=== PATIENT | female | born 1985 | race Caucasian/White ===

== ENCOUNTER 2019-06-19 01:48 | Inpatient (IN) ==
[2019-06-19] MEDS ORDERED: CEFAZOLIN 2000MG 2,000 MG/15 ML SYR IV ONE (02:45)
[2019-06-19 02:58] LABS: Hematocrit (blood only) 34.7 % (37-47); Hemoglobin 11.8 g/dL (12.0-16.0); Mean Corpuscular Hemoglobin 29.6 pg (25-34); Mean Corpuscular Volume 87.2 fL (80-100); Mean Platelet Volume 11.2 fL (7.4-10.4); Platelet Count 189 K/uL (130-400); RDW Coefficient of Variation 13.2 % (11.5-14.5); RDW Standard Deviation 42.5 fL (36.4-46.3); Red Blood Count 3.98 M/uL (4.2-5.4); White Blood Count 8.04 K/uL (4.8-10.8)
--- NOTE | 2019-06-19 04:33 | History & Physical Report ---
Date of Service June 19, 2019 Assessment & Plan (1) Carrier of group B Streptococcus: start ancef as allergy to amoxicillin. (2) Spontaneous rupture of membranes: Is starting to contract. Will allow expectant management for now. fetus category. pitocin augmentation as needed. History of Present Illness Chief Complaint: rom Primary Care Provider: NO PCP Patient is a 33yowf with iup at 40 6/7 weeks who presents with c/o lof at 12:30am, clear. Notes some mild cramping. +fm. Scheduled for induction today. complicated by GBS from urine and need for treating in labor. labs--B+/ab-/pa pnl/ri//rprnr/hebp-/hiv-/gc/ct-/declined cf, sma/declines genetics Allergies Allergy/AdvReac Type Severity Reaction Status Date / Time Iodine SOLN Allergy Severe Redness of Uncoded 06/19/19 02:06 Skin Amoxicillin TABS Allergy Unknown Rash Uncoded 06/19/19 02:04 Home Medications Home Medications Medication Instructions Recorded Confirmed Type prenat.vits,clarence,biu-moiq-jakmb 1 tab PO DAILY 03/14/19 06/19/19 History Patient History Family History (Updated 03/14/19 @ 07:42 by Martha Lucero) Grandfather (Paternal) Diabetes Hypertension Social History (Updated 03/14/19 @ 07:42 by Martha Lucero) Preferred Language: Tajik Communication Ability: Effective Beliefs That Will Affect Care: None marital status: Current Living Situation: Spouse Other Information That Helps Us Care for You: No Feels Safe at Home: Yes Safety Concerns: Feels Safe At This Time Smoking Status: Never smoker Hx Alcohol Use: No Hx Substance Use: No OB History g1--07/22, sab [employer] History no stds, no abnl paps Review of Systems All systems reviewed & are unremarkable except as noted in HPI & below Physical Exam Constitutional: WD/WN, vitals as above Gastrointestinal (Abdomen): soft, gravid, nt Psychiatric: A+Ox3, euthymic affect Genitourinary: cx--2/80/-1 toco--q 3-8 min efm--140s with mod variability, accels present, no decels Results & Data Vital Signs (Past 12 Hours) Vital Signs Temp Pulse Resp BP 06/19/19 04:15 36.7 C 18 06/19/19 03:00 36.6 C 18 06/19/19 02:01 36.7 C 18 06/19/19 01:56 98 H 120/76 Code Status & VTE Plan VTE Prophylaxis Plan VTE Prophylaxis will be ordered: No
[2019-06-19] MEDS ORDERED: INFLUENZA ADMINISTRATION CHARGE ONE (06:00)
[2019-06-19] MEDS ORDERED: INFLUENZA VIRUS QUAD VACCINE 0.5 ML SYR IM ONE (06:00)
--- NOTE | 2019-06-19 06:35 | Obstetrical Progress Note ---
Date of Service June 19, 2019 Assessment & Plan (1) Spontaneous rupture of membranes: Continue expectant management at this time, since making some changed. fetus category one. Pitocin if indicated. (2) Carrier of group B Streptococcus: continue ancef Subjective notes contractions are getting more uncomfortable. Physical Exam Constitutional: WD/WN, vitals as above Psychiatric: A+Ox3, euthymic affect Genitourinary: cx--3+/100/-1 toco--q3-5min efm--130s with mod variability, accels to 160s, no decels Results & Data Vital Signs (Past 12 Hours) Vital Signs Temp Pulse Resp BP 06/19/19 06:21 73 106/61 06/19/19 04:15 36.7 C 18 06/19/19 03:00 36.6 C 18 06/19/19 02:01 36.7 C 18 06/19/19 01:56 98 H 120/76 PG Care Time/CCT Total # of Minutes Spent Total Time Spent with Patient: Total time spent is greater than 50% in coordination of care (as documented) at patient's floor/unit and/or counseling patient:
[2019-06-19] MEDS ORDERED: OXYTOCIN 30 UNITS/500 ML BAG IV PRN (10:20)
[2019-06-19] MEDS: LACTATED RINGER'S 1,000 ML IV PRN ×4 (10:31→18:44)
[2019-06-19] MEDS: CEFAZOLIN 1000MG 1,000 MG/7.5 ML SYR IV PRN ×2 (10:46→18:44)
[2019-06-19] MEDS ORDERED: BUPIVACAINE 0.25% 30 ML VIAL ONE (11:37)
[2019-06-19] MEDS ORDERED: fentaNYL citrate 100 MCG/2 ML VIAL ONE (11:37)
[2019-06-19] MEDS ORDERED: ePHEDrine sulfate 50 MG/ML AMP ONE (11:37)
[2019-06-19] MEDS ORDERED: fentaNYL 2MCG/ML ROPIV 1.25MG/ML 100 ML BAG EPI ONE (11:38)
[2019-06-19] MEDS ORDERED: ePHEDrine sulfate 50 MG/ML AMP IV PRN (12:25)
[2019-06-19] MEDS ORDERED: fentaNYL 2MCG/ML ROPIV 1.25MG/ML 100 ML BAG EPI PRN (12:25)
[2019-06-19] MEDS ORDERED: NALOXONE HCL 1 MG in SODIUM CHLORIDE 0.9% 1000ML 1,000 ML IV PRN (12:25)
[2019-06-19] MEDS ORDERED: NALBUPHINE HCL INJ 10 MG/ML AMP IV PRN (12:25)
[2019-06-19] MEDS ORDERED: DiphenhydrAMINE HCL 50 MG/ML VIAL IV PRN (12:25)
[2019-06-19] MEDS ORDERED: NALOXONE HCL 0.4 MG/1 ML VIAL/CARP IV PRN (12:25)
--- NOTE | 2019-06-19 13:08 | Anesthesiology Consultation ---
Date of Service June 19, 2019 Assessment & Plan Chart Review Chart Review: Acceptable Risk for Labor Epidural Consults Requested none History Height/Weight Height: 5 ft 6 in Weight: 90.718 kg Allergies Allergy/AdvReac Type Severity Reaction Status Date / Time Iodine SOLN Allergy Severe Redness of Uncoded 06/19/19 02:06 Skin Amoxicillin TABS Allergy Unknown Rash Uncoded 06/19/19 02:04 Medications Home Medications Medication Instructions Recorded Confirmed Last Taken prenat.vits,clarence,ihr-nubg-rhpxi 1 tab PO DAILY 03/14/19 06/19/19 06/18/19 19:30 Active Medications Generic Name Dose Route Start Last Admin Trade Name Freq PRN Reason Stop Dose Admin Lactated Ringer's 1,000 mls @ 125 mls/hr 06/19/19 02:45 06/19/19 12:20 Lr IV 06/21/19 02:44 125 mls/hr .Q8H PRN Administration L&D Protocol Protocol Cefazolin Sodium 1,000 mg in 7.5 mls @ 2.5 mls/min 06/19/19 10:50 06/19/19 10:46 Ancef 1000mg IV 07/03/19 10:49 2.5 mls/min Q8H PRN Administration until delivery Oxytocin 30 units in 500 mls @ 3 mls/hr 06/19/19 10:20 06/19/19 11:28 Pitocin IV 06/21/19 10:19 0.18 units/hr .Q24H PRN 3 mls/hr Labor Induction/Augmentation Titration Protocol 0.18 UNITS/HR Past Medical History Medical History History of irregular menstrual cycles History of varicella Past Family History Family History Grandfather (Paternal) Diabetes Hypertension Past Surgical History Surgical History History of ankle surgery History of wisdom tooth extraction Social History Smoking Status: Never smoker Hx Alcohol Use: No Hx Substance Use: No Physical Exam Vital Signs Last Vital Signs Temp 36.9 C 06/19/19 11:30 Pulse 101 H 06/19/19 13:06 Resp 20 06/19/19 11:30 BP 111/58 L 06/19/19 13:06 Pulse Ox 100 06/19/19 13:05 Testing Laboratory Results 06/19/19 02:47
--- NOTE | 2019-06-19 16:45 | Labor Progress Brief Note ---
Date of Service June 19, 2019 Subjective Reason For Note: Routine Evaluation Assessment & Plan (1) Carrier of group B Streptococcus: 33yo G1 at 40.6 weeks GA. PROM. 1. tachy noted for ~30 minute - Bolus performed with FHR improvement and Cat 1 at present 2. Labor: Progressing. Continue Pitocin 3. Vitals: Stable 4. GBS positive: continue ancef (2) Spontaneous rupture of membranes: (3) Supervision of normal first : Physical Exam Genitourinary: OB Exam Abdomen: + vertex Manual OB Exam: + cervical dilation 6 cm, + cervical effacement 90%, + station 0 and + amniotic fluid clear OB Exam Monitor Tracing: + external FHT monitor used, + external uterine monitor used, + category I and + normal FHT variability Results & Data Vital Signs (Past 12 Hours) Vital Signs Temp Pulse Resp BP Pulse Ox 06/19/19 16:41 82 98 06/19/19 16:36 86 98 06/19/19 16:31 87 97 06/19/19 16:29 74 111/63 06/19/19 16:26 85 98 06/19/19 16:21 88 99 06/19/19 16:15 89 99 06/19/19 16:13 82 88/54 L 06/19/19 16:10 82 97 06/19/19 16:05 81 98 06/19/19 16:03 36.9 C 18 06/19/19 16:00 83 91/51 L 98 06/19/19 15:58 76 88/54 L 06/19/19 15:55 101 H 98 06/19/19 15:50 82 98 06/19/19 15:45 78 97 06/19/19 15:43 81 90/52 L 06/19/19 15:40 92 H 98 06/19/19 15:35 88 98 06/19/19 15:30 98 H 98 06/19/19 15:29 101 H 99/55 L 06/19/19 15:28 96 H 99/54 L 06/19/19 15:25 97 H 99 06/19/19 15:20 95 H 98 06/19/19 15:15 92 H 98 06/19/19 15:13 36.8 C 95 H 18 103/56 L 06/19/19 15:10 90 98 06/19/19 15:05 103 H 98 06/19/19 15:00 96 H 98 06/19/19 14:59 95 H 97/52 L 06/19/19 14:55 118 H 98 06/19/19 14:50 119 H 99 06/19/19 14:45 114 H 98 06/19/19 14:44 81 111/55 L 06/19/19 14:40 95 H 98 06/19/19 14:35 103 H 98 06/19/19 14:30 118 H 99 06/19/19 14:29 90 111/61 06/19/19 14:25 85 98 06/19/19 14:20 109 H 99 06/19/19 14:15 106 H 99 06/19/19 14:13 117 H 108/65 06/19/19 14:10 90 100 06/19/19 14:05 95 H 99 06/19/19 14:00 94 H 100 06/19/19 13:58 105 H 114/69 06/19/19 13:55 81 100 06/19/19 13:50 107 H 100 06/19/19 13:45 126 H 100 06/19/19 13:44 80 115/62 06/19/19 13:40 105 H 100 06/19/19 13:35 113 H 100 06/19/19 13:30 116 H 100 06/19/19 13:26 114 H 106/63 06/19/19 13:25 113 H 99 06/19/19 13:24 76 108/62 06/19/19 13:22 120 H 108/59 L 06/19/19 13:20 88 109/56 L 100 06/19/19 13:18 94 H 114/59 L 06/19/19 13:16 117 H 103/58 L 06/19/19 13:15 106 H 99 06/19/19 13:14 84 107/66 06/19/19 13:12 107 H 101/66 06/19/19 13:10 118 H 100/63 99 06/19/19 13:08 125 H 92/55 L 06/19/19 13:06 101 H 111/58 L 06/19/19 13:05 140 H 100 06/19/19 13:04 109 H 93/50 L 06/19/19 13:02 88 98/54 L 06/19/19 13:00 120 H 94/53 L 100 06/19/19 12:58 120 H 101/57 L 06/19/19 12:56 110 H 86/51 L 06/19/19 12:55 97 H 100 06/19/19 12:54 106 H 87/51 L 06/19/19 12:52 106 H 95/50 L 06/19/19 12:50 108 H 103/56 L 100 06/19/19 12:48 100 H 103/59 L 06/19/19 12:46 77 102/57 L 06/19/19 12:45 78 100 06/19/19 12:40 85 100 06/19/19 12:37 36.9 C 18 06/19/19 12:36 83 113/67 06/19/19 12:35 89 100 06/19/19 11:30 36.9 C 81 20 119/78 06/19/19 10:52 83 114/65 06/19/19 10:03 81 114/60 06/19/19 09:25 36.8 C 18 06/19/19 07:27 36.9 C 20 06/19/19 07:26 75 98/57 L 06/19/19 06:21 73 106/61 06/19/19 06:15 36.7 C 18
[2019-06-20] MEDS ORDERED: AZITHROMYCIN 500 MG in DEXTROSE 5% 250 ML IV ONE (02:20)
[2019-06-20] MEDS ORDERED: CEFAZOLIN 2000MG 2,000 MG/15 ML SYR IV ONE (02:20)
[2019-06-20] MEDS ORDERED: CITRIC ACID/SODIUM CITRATE 15 ML UDC ONE (02:37)
[2019-06-20] MEDS: LACTATED RINGER'S 1,000 ML IV PRN (02:45)
[2019-06-20] MEDS ORDERED: LIDOCAINE/EPINEPHRINE 2% 1:200,000 20 ML SDV ONE ×2 (04:06)
[2019-06-20] MEDS ORDERED: OXYTOCIN 10 UNITS/ML VIAL ONE (04:06)
[2019-06-20] MEDS ORDERED: PHENYLEPHRINE 100MCG/ML 5ML SYR ONE (04:06)
[2019-06-20] MEDS ORDERED: MoRPHine SULFATE PF 1 MG/ML 10 ML AMP/VIAL ONE (04:08)
[2019-06-20] MEDS ORDERED: ONDANSETRON INJ 2 MG/ML 2 ML VIAL ONE (04:22)
[2019-06-20] MEDS ORDERED: fentaNYL citrate 100 MCG/2 ML VIAL ONE (04:23)
[2019-06-20] MEDS ORDERED: SENNA 8.6 MG TAB PO PRN (04:38)
[2019-06-20] MEDS ORDERED: BENZOCAINE 20% AER SPR 82.5 GM CAN EXT PRN (04:38)
[2019-06-20] MEDS ORDERED: DIPHTHERIA/TETANUS/PERTUSSIS 0.5 ML SYR/VIAL IM ONE (04:38)
[2019-06-20] MEDS ORDERED: HYDROCORTISONE ACETATE 25 MG SUPP PR PRN (04:38)
[2019-06-20] MEDS ORDERED: SUPERCREAM 0.870% 15 GM JAR EXT PRN (04:38)
[2019-06-20] MEDS ORDERED: KETOROLAC 30 MG/ML VIAL IV PRN ×2 (04:38→05:04)
[2019-06-20] MEDS ORDERED: MAGNESIUM HYDROXIDE SUSP 30 ML UDC PO PRN (04:38)
[2019-06-20] MEDS ORDERED: LACTATED RINGER'S 1,000 ML IV SCH (04:45)
--- NOTE | 2019-06-20 04:55 | Anesthesia Procedure Note ---
Date of Service June 20, 2019 Anesthesia Post Epidural Note Vital Signs Vital Signs: Temp Pulse Resp BP Pulse Ox 36.7 C 115 H 18 112/72 98 06/20/19 03:00 06/20/19 04:52 06/20/19 03:00 06/20/19 04:47 06/20/19 04:52 Pain Intensity Sacrum: Pain Intensity: 0 Notes Mental Status: alert / awake / arousable Nausea / Vomiting: adequately controlled Pain: adequately controlled Airway Patency, RR, SpO2: stable & adequate BP & HR: stable & adequate Hydration State: stable & adequate Neuraxial Anesthesia: was administered and sensory block is resolving Anesthetic Complications: no major complications apparent and Pt Satisfied with anesthetic care Epidural: Removed without complications and With tip intact
[2019-06-20] MEDS ORDERED: ePHEDrine sulfate 50 MG/ML AMP IV PRN (05:04)
[2019-06-20] MEDS ORDERED: NALOXONE HCL 0.08 MG in SYRINGE 1.8 ML IV PRN (05:04)
[2019-06-20] MEDS ORDERED: HYDROmorphone INJ 0.5 MG/0.5 ML SYR IV PRN (05:04)
[2019-06-20] MEDS ORDERED: DiphenhydrAMINE HCL 50 MG/ML VIAL IV PRN ×2 (05:04→23:04)
[2019-06-20] MEDS ORDERED: METOCLOPRAMIDE HCL 20 MG in SODIUM CHLORIDE 0.9% 50 ML IV PRN (05:04)
[2019-06-20] MEDS ORDERED: LACTATED RINGER'S 500 ML IV PRN (05:04)
[2019-06-20] MEDS ORDERED: NALOXONE HCL 1 MG in SODIUM CHLORIDE 0.9% 1000ML 1,000 ML IV PRN (05:04)
[2019-06-20] MEDS ORDERED: MEPERIDINE HCL 25 MG/ML CARP IV PRN (05:04)
[2019-06-20] MEDS ORDERED: MoRPHine SULFATE PF 1 MG/ML 10 ML AMP/VIAL INT SPINAL ONE (05:04)
[2019-06-20] MEDS ORDERED: NALBUPHINE HCL INJ 10 MG/ML AMP IV PRN (05:04)
[2019-06-20] MEDS ORDERED: NALOXONE HCL 0.4 MG/1 ML VIAL/CARP IV PRN (05:04)
[2019-06-20] MEDS ORDERED: MoRPHine SULFATE 2 MG/ML CARP IV PRN (05:04)
[2019-06-20] MEDS ORDERED: PROMETHAZINE HCL 25 MG in SODIUM CHLORIDE 0.9% 50 ML IV PRN ×2 (05:04→23:04)
[2019-06-20] MEDS ORDERED: ONDANSETRON INJ 2 MG/ML 2 ML VIAL IV PRN ×2 (05:04→23:04)
[2019-06-20] MEDS ORDERED: NO NARCOTICS OR SEDATIVES SCH (05:15)
[2019-06-20] MEDS ORDERED: DC INTRASPINAL MORPHINE SCH (05:15)
[2019-06-20] MEDS ORDERED: SODIUM CHLORIDE 0.9% 1000ML 1,000 ML IV SCH (05:15)
--- NOTE | 2019-06-20 05:17 | Operative Report ---
DATE OF OPERATION: 06/20/2019 PROCEDURE: Primary low transverse section. SURGEON: Amauri Martinez MD PREOPERATIVE DIAGNOSES: 1. Single intrauterine at 41 weeks 0 days gestational age. 2. Premature rupture of membranes. 3. Arrest of descent. 4. Prolonged rupture of membranes. 5. GBS positive. POSTOPERATIVE DIAGNOSES: 1. Single intrauterine at 41 weeks 0 days gestational age. 2. Premature rupture of membranes. 3. Arrest of descent. 4. Prolonged rupture of membranes. 5. GBS positive. 6. Status post delivery. ESTIMATED BLOOD LOSS: 700 mL. DRAINS: Breen. FLUIDS: Continuous lactated ringer. URINE OUTPUT: Via Breen, see EMR. COMPLICATIONS: None. FINDINGS: Viable female with weight pending with Apgars of 8 and 9 and weight of 4220 grams. INDICATIONS: Ms. Dudley is a 33-year-old G1, P0, admitted at 40 weeks 6 days gestational age for premature rupture of membranes. The patient was started on oxytocin. She received an epidural for anesthesia. She became complete-complete, 0 to +1 station, at which time she felt a strong urge to push. The patient pushed for approximately 2 hours and 45 minutes with no descent of station. We discussed management options at that time including continued pushing versus a section. The patient opted to proceed with the section. Consents were reviewed and signed prior to proceeding to the OR. The patient received 500 mg of azithromycin and 2 grams of Ancef. DESCRIPTION OF PROCEDURE: The patient was taken to the operating room after consents were ensured. Upon presentation, she was properly identified. The patient's epidural anesthesia was bolused to achieve adequate surgical levels. The patient was then prepped and draped in the normal sterile fashion. A preprocedural timeout was performed. A Pfannenstiel incision was then made with a knife. This was carried down to underlying fascia with the Bovie. The fascia was then nicked at the midline with a knife. The fascia was then extended in each direction with pickedgar and Kessler scissors. The superior aspect of the fascia was then grasped with Kochers x2, elevated off the underlying rectus muscles using blunt dissection. The inferior aspect of the fascia was then grasped with Kochers x2, elevated off the underlying rectus muscles using blunt dissection. The midline was then entered bluntly and placed on stretch to provide adequate room for delivery. The bladder blade was inserted and bladder flap was created. A low transverse uterine incision was then made with a knife. The head of the was then delivered through the hysterotomy and body and shoulders quickly followed. was noted to be showed some signs of response upon delivery when the cord was double clamped and cut, and the was taken to the awaiting nursery staff. Cord blood was obtained. Attention was then turned to deliver the placenta, which was delivered with fundal massage and gentle cord traction and was noted to be intact with 3-vessel cord. The uterus was then exteriorized. Several passes were made to remove any remaining membranes with a wet lap. The uterus was then closed with 3-0 Vicryl in continuous running locked suture, second imbricating layer of 3-0 Vicryl was performed. The posterior cul-de-sac was then cleaned of clots and debris. The uterus was returned to maternal abdomen. Right and left pericolic gutters were inspected and noted to be hemostatic. The space of Retzius was hemostatic. The subcutaneous fascial and muscle layers were then inspected and noted to be hemostatic. Fascia was then closed with 0 Vicryl continuous running stitch. The subcutaneous layers were reapproximated with 2-0 plain in a continuous running stitch. The skin was reapproximated with 3-0 Vicryl on a Boy needle. Needle, sponge and instrument counts were correct at the completion of the case with mother and stable in the immediate post-delivery. I attest to the content of the Intraoperative Record and any orders documented therein. Any exceptions are noted below. CASSY
[2019-06-20] MEDS: OXYTOCIN 20 UNITS in LACTATED RINGER'S 1,000 ML IV SCH ×2 (06:04→14:25)
--- NOTE | 2019-06-20 06:21 | Anesthesiology Progress Note ---
Date of Service June 20, 2019 Anesthesia Post Procedure Vital Signs Vital Signs: Temp Pulse Resp BP Pulse Ox 06/20/19 06:17 83 94 06/20/19 06:16 82 94 06/20/19 06:12 82 94 06/20/19 06:07 90 95 06/20/19 06:06 85 94 06/20/19 06:02 84 112/57 L 95 06/20/19 06:00 37.4 C 18 06/20/19 05:57 95 H 96 06/20/19 05:56 104 H 110/60 06/20/19 05:54 108 H 94 06/20/19 05:52 105 H 96 06/20/19 05:47 37.4 C 108 H 20 112/58 L 94 06/20/19 05:42 105 H 95 06/20/19 05:37 106 H 16 120/65 96 06/20/19 05:32 103 H 95 06/20/19 05:27 104 H 18 114/61 95 06/20/19 05:22 107 H 96 06/20/19 05:17 107 H 16 117/72 96 06/20/19 05:12 100 H 96 06/20/19 05:07 104 H 18 119/80 96 06/20/19 05:02 93 H 97 06/20/19 04:57 100 H 97 06/20/19 04:56 98 H 114/75 06/20/19 04:52 115 H 98 06/20/19 04:47 36.7 C 105 H 16 112/72 96 06/20/19 04:06 20 06/20/19 03:25 103 H 98 06/20/19 03:20 114 H 97 06/20/19 03:15 118 H 97 06/20/19 03:13 105 H 119/77 06/20/19 03:10 110 H 98 06/20/19 03:05 93 H 97 06/20/19 03:00 36.7 C 94 H 18 97 06/20/19 02:58 98 H 112/70 06/20/19 02:55 91 H 98 06/20/19 02:51 107 H 82 L 06/20/19 02:50 94 H 97 06/20/19 02:45 97 H 97 06/20/19 02:43 86 109/64 06/20/19 02:40 96 H 114/69 97 06/20/19 02:36 77 128/70 06/20/19 02:35 91 H 98 06/20/19 02:30 74 18 96 06/20/19 02:26 85 94 06/20/19 02:25 73 98 06/20/19 02:20 74 99 06/20/19 02:15 96 H 95 06/20/19 02:10 70 97 06/20/19 02:05 75 98 06/20/19 02:00 90 18 98 06/20/19 01:56 60 116/67 06/20/19 01:55 85 98 06/20/19 01:50 135 H 97 06/20/19 01:45 93 H 97 06/20/19 01:40 67 96 06/20/19 01:35 76 95 06/20/19 01:34 124 H 94 06/20/19 01:30 82 18 96 06/20/19 01:29 75 80 L 06/20/19 01:25 73 97 06/20/19 01:19 79 98 06/20/19 01:14 70 96 06/20/19 01:11 81 92 06/20/19 01:08 77 100 06/20/19 01:05 86 92 06/20/19 01:03 81 98 06/20/19 01:00 36.7 C 81 18 93 06/20/19 00:59 74 123/67 06/20/19 00:58 70 97 06/20/19 00:53 75 98 06/20/19 00:48 69 97 06/20/19 00:47 80 94 06/20/19 00:43 71 97 06/20/19 00:42 116 H 92 06/20/19 00:38 69 97 06/20/19 00:33 76 98 06/20/19 00:28 92 H 97 06/20/19 00:06 77 132/76 98 06/20/19 00:01 76 98 06/20/19 00:00 18 06/19/19 23:56 95 H 97 06/19/19 23:51 78 97 06/19/19 23:47 86 124/71 06/19/19 23:46 94 H 97 06/19/19 23:45 111 H 196/103 H 06/19/19 23:44 109 H 89 L 06/19/19 23:41 100 H 97 06/19/19 23:36 77 97 06/19/19 23:31 86 96 06/19/19 23:30 18 06/19/19 23:26 114 H 97 06/19/19 23:22 92 H 94 06/19/19 23:21 92 H 94 06/19/19 23:16 98 H 97 06/19/19 23:15 88 123/76 06/19/19 23:11 92 H 96 06/19/19 23:06 91 H 97 06/19/19 23:03 92 H 94 06/19/19 23:01 87 96 06/19/19 23:00 36.7 C 18 06/19/19 22:58 85 134/77 06/19/19 22:56 85 97 06/19/19 22:54 81 93 06/19/19 22:51 86 95 06/19/19 22:46 77 94 06/19/19 22:44 86 123/77 06/19/19 22:41 79 98 06/19/19 22:40 76 94 06/19/19 22:36 79 96 06/19/19 22:31 89 92 06/19/19 22:28 88 136/83 06/19/19 22:26 87 97 06/19/19 22:21 99 H 98 06/19/19 22:16 90 99 06/19/19 22:13 93 H 125/78 06/19/19 22:11 97 H 99 06/19/19 22:06 82 98 06/19/19 22:01 82 98 06/19/19 21:59 77 125/70 06/19/19 21:58 18 06/19/19 21:56 87 99 06/19/19 21:51 83 98 06/19/19 21:46 82 99 06/19/19 21:43 93 H 117/68 06/19/19 21:41 89 98 06/19/19 21:36 87 98 06/19/19 21:31 91 H 99 06/19/19 21:30 18 06/19/19 21:29 78 127/75 06/19/19 21:26 87 99 06/19/19 21:21 80 99 06/19/19 21:16 79 99 06/19/19 21:13 86 117/70 06/19/19 21:11 82 98 06/19/19 21:06 91 H 98 06/19/19 21:01 95 H 98 06/19/19 21:00 36.9 C 18 06/19/19 20:58 83 116/69 06/19/19 20:56 88 98 06/19/19 20:51 92 H 100 06/19/19 20:46 99 H 99 06/19/19 20:43 78 112/65 06/19/19 20:41 88 99 06/19/19 20:36 81 100 06/19/19 20:31 83 99 06/19/19 20:28 88 113/68 06/19/19 20:26 85 99 06/19/19 20:21 89 98 06/19/19 20:16 84 98 06/19/19 20:13 86 107/63 06/19/19 20:11 83 98 06/19/19 20:06 97 H 99 06/19/19 20:01 90 99 06/19/19 20:00 82 114/67 06/19/19 19:56 89 99 06/19/19 19:54 18 06/19/19 19:51 91 H 99 06/19/19 19:46 98 H 99 06/19/19 19:44 74 93/50 L 06/19/19 19:41 94 H 98 06/19/19 19:36 104 H 99 06/19/19 19:31 80 98 06/19/19 19:28 83 95/52 L 06/19/19 19:26 85 99 06/19/19 19:21 100 H 99 06/19/19 19:16 83 96 06/19/19 19:15 36.7 C 18 06/19/19 19:13 87 101/58 L 06/19/19 19:11 98 H 98 06/19/19 19:06 97 H 97 06/19/19 19:01 87 99 06/19/19 18:58 107 H 93/50 L 06/19/19 18:56 93 H 98 06/19/19 18:51 83 98 06/19/19 18:46 101 H 99 06/19/19 18:43 81 95/53 L 06/19/19 18:41 90 100 06/19/19 18:36 90 99 06/19/19 18:31 98 H 98 06/19/19 18:28 90 103/57 L 06/19/19 18:26 99 H 99 06/19/19 18:21 97 H 99 06/19/19 18:16 86 98 06/19/19 18:13 82 118/67 06/19/19 18:11 90 100 06/19/19 18:06 96 H 100 06/19/19 18:01 92 H 99 06/19/19 18:00 36.9 C 18 06/19/19 17:58 84 126/77 06/19/19 17:56 99 H 98 06/19/19 17:51 97 H 99 06/19/19 17:46 87 98 06/19/19 17:43 85 119/69 06/19/19 17:41 93 H 98 06/19/19 17:36 93 H 100 06/19/19 17:31 84 98 06/19/19 17:28 86 118/70 06/19/19 17:26 89 97 06/19/19 17:21 107 H 98 06/19/19 17:16 112 H 97 06/19/19 17:14 83 118/70 06/19/19 17:11 82 97 06/19/19 17:08 36.8 C 16 06/19/19 17:06 96 H 98 06/19/19 17:01 99 H 97 06/19/19 16:58 100 H 103/65 06/19/19 16:56 84 98 06/19/19 16:51 82 97 06/19/19 16:46 118 H 99 06/19/19 16:45 88 115/66 06/19/19 16:41 82 98 06/19/19 16:36 86 98 06/19/19 16:31 87 97 06/19/19 16:29 74 111/63 06/19/19 16:26 85 98 06/19/19 16:21 88 99 06/19/19 16:15 89 99 06/19/19 16:13 82 88/54 L 06/19/19 16:10 82 97 06/19/19 16:05 81 98 06/19/19 16:03 36.9 C 18 06/19/19 16:00 83 91/51 L 98 06/19/19 15:58 76 88/54 L 06/19/19 15:55 101 H 98 06/19/19 15:50 82 98 06/19/19 15:45 78 97 06/19/19 15:43 81 90/52 L 06/19/19 15:40 92 H 98 06/19/19 15:35 88 98 06/19/19 15:30 98 H 98 06/19/19 15:29 101 H 99/55 L 06/19/19 15:28 96 H 99/54 L 06/19/19 15:25 97 H 99 06/19/19 15:20 95 H 98 06/19/19 15:15 92 H 98 06/19/19 15:13 36.8 C 95 H 18 103/56 L 06/19/19 15:10 90 98 06/19/19 15:05 103 H 98 06/19/19 15:00 96 H 98 06/19/19 14:59 95 H 97/52 L 06/19/19 14:55 118 H 98 06/19/19 14:50 119 H 99 06/19/19 14:45 114 H 98 06/19/19 14:44 81 111/55 L 06/19/19 14:40 95 H 98 06/19/19 14:35 103 H 98 06/19/19 14:30 118 H 99 06/19/19 14:29 90 111/61 06/19/19 14:25 85 98 06/19/19 14:20 109 H 99 06/19/19 14:15 106 H 99 06/19/19 14:13 117 H 108/65 06/19/19 14:10 90 100 06/19/19 14:05 95 H 99 06/19/19 14:00 94 H 100 06/19/19 13:58 105 H 114/69 06/19/19 13:55 81 100 06/19/19 13:50 107 H 100 06/19/19 13:45 126 H 100 06/19/19 13:44 80 115/62 06/19/19 13:40 105 H 100 06/19/19 13:35 113 H 100 06/19/19 13:30 116 H 100 14 13:26 114 H 106/63 06/19/19 13:25 113 H 99 06/19/19 13:24 76 108/62 06/19/19 13:22 120 H 108/59 L 06/19/19 13:20 88 109/56 L 100 06/19/19 13:18 94 H 114/59 L 06/19/19 13:16 117 H 103/58 L 06/19/19 13:15 106 H 99 06/19/19 13:14 84 107/66 06/19/19 13:12 107 H 101/66 06/19/19 13:10 118 H 100/63 99 06/19/19 13:08 125 H 92/55 L 06/19/19 13:06 101 H 111/58 L 06/19/19 13:05 140 H 100 06/19/19 13:04 109 H 93/50 L 06/19/19 13:02 88 98/54 L 06/19/19 13:00 120 H 94/53 L 100 06/19/19 12:58 120 H 101/57 L 06/19/19 12:56 110 H 86/51 L 06/19/19 12:55 97 H 100 06/19/19 12:54 106 H 87/51 L 06/19/19 12:52 106 H 95/50 L 06/19/19 12:50 108 H 103/56 L 100 06/19/19 12:48 100 H 103/59 L 06/19/19 12:46 77 102/57 L 06/19/19 12:45 78 100 06/19/19 12:40 85 100 06/19/19 12:37 36.9 C 18 06/19/19 12:36 83 113/67 06/19/19 12:35 89 100 06/19/19 11:30 36.9 C 81 20 119/78 06/19/19 10:52 83 114/65 06/19/19 10:03 81 114/60 06/19/19 09:25 36.8 C 18 06/19/19 07:27 36.9 C 20 06/19/19 07:26 75 98/57 L 06/19/19 06:21 73 106/61 Pain Intensity Sacrum: Pain Intensity: 0 Bilateral Lower Abdomen: Pain Intensity: 1 Transfer of Care Handoff Completed per policy Notes Mental Status: alert / awake / arousable and participated in evaluation Patient Amnestic to Procedure: Yes Nausea / Vomiting: adequately controlled Pain: adequately controlled Airway Patency, RR, SpO2: stable & adequate BP & HR: stable & adequate Hydration State: stable & adequate Anesthetic Complications: no major complications apparent
[2019-06-20] MEDS: DOCUSATE SODIUM 100 MG CAP PO SCH ×2 (09:55→21:02)
[2019-06-20] MEDS: FERROUS SULFATE 325 MG TAB PO SCH (09:56)
[2019-06-20] MEDS: SIMETHICONE 80 MG CHEW PO SCH ×4 (09:56→21:02)
[2019-06-20] MEDS: PRENATAL VITAMIN 1 TAB PO SCH (09:56)
[2019-06-20] MEDS ORDERED: ZOLPIDEM TARTRATE 5 MG TAB PO PRN (23:04)
[2019-06-20] MEDS ORDERED: OXYCODONE/ACETAMINOPHEN 5mg/325mg TAB PO PRN (23:04)
[2019-06-21 06:42] LABS: Basophils # (auto) 0.01 K/uL (0-0.2); Basophils % (auto) 0.1 %; Eosinophils # (auto) 0.11 K/uL (0-0.5); Eosinophils % (auto) 1.4 %; Hematocrit (blood only) 30.5 % (37-47); Hemoglobin 10.2 g/dL (12.0-16.0); Immature Granulocytes # (auto) 0.04 K/uL (0.00-0.02); Immature Granulocytes % (auto) 0.5 %; Lymphocytes # (auto) 1.08 K/uL (1.2-3.4); Lymphocytes % (auto) 13.8 %; Mean Corpuscular Hemoglobin 29.7 pg (25-34); Mean Corpuscular Hgb Conc 33.4 g/dL (32-36); Mean Corpuscular Volume 88.9 fL (80-100); Mean Platelet Volume 11.2 fL (7.4-10.4); Monocytes # (auto) 1.02 K/uL (0.11-0.59); Neutrophils # (auto) 5.57 K/uL (1.4-6.5); Neutrophils % (auto) 71.2 %; Platelet Count 141 K/uL (130-400); RDW Coefficient of Variation 13.6 % (11.5-14.5); RDW Standard Deviation 44.2 fL (36.4-46.3); Red Blood Count 3.43 M/uL (4.2-5.4); White Blood Count 7.83 K/uL (4.8-10.8)
--- NOTE | 2019-06-21 07:31 | Obstetrical Progress Note ---
Date of Service <Wesly Ibarrapiyush - Last Filed: 06/21/19 07:31> June 21, 2019 Assessment & Plan <Wesly Hidalgo DO - Last Filed: 06/21/19 07:31> (1) : -POD#1 -Vitals reviewed, WNL (Tmax 36.9) - GBS +, Blood Type B+ - PCN prepartum - Clinically stable. - Feels well today. Ambulating well. Plan for regular diet later today. - Requires straight cath PRN, will continue to monitor. - Pain well controlled. - Routine post care - After discharge will have [address] Martinez. Day #:: 1 Subjective <Wesly IbarraDO piyush - Last Filed: 06/21/19 07:31> Ambulation: ambulating normally Voiding: requires PRN straight cath (able to minimally void with effort) Passing Gas:: Yes Diet Tolerance:: clear liquids Lochia:: Moderate Feeding Type:: breast feeding Current Pain Level(1-10): 2 (improved with analgesics) Patient is a 33 POD#1. Patient states that she is doing well this morning and that her pain is well controlled. She has no complaints at this point in time. Constitutional: no fever and no chills Respiratory: no cough, no dyspnea and no wheezing Cardiovascular: no chest pain, no dyspnea, no dyspnea on exertion, no edema and no calf pain Breast: no breast pain Gastrointestinal: no abdominal pain, no nausea and no vomiting Genitourinary (female): + difficulty urinating (slow to urinate, requires straight cath PRN); no dysuria Neurologic: no headache(s) Physical Exam <Wesly Ibarrapiyush - Last Filed: 06/21/19 07:31> Constitutional WD/WN, vitals as above Respiratory normal respiratory effort, lungs clear to auscultation Cardiovascular Rate/Rhythm: regular rate and regular rhythm Heart Sounds: normal S1 and normal S2; no click, no gallop, no murmur and no cardiac rub Extremities: + edema (+1); no calf tenderness Gastrointestinal (Abdomen) Inspection/Auscultation: abdomen normal to inspection, normal bowel sounds and + abdominal surgical incision (Dressing clean and dry) Percussion/Palpation: abdomen soft; abdomen nontender Genitourinary OB Exam Abdomen: + fundal height Fundus: + firm and + relation to umbilicus (1cm below); not tender and not boggy Results & Data <Wesly Hidalgo DO - Last Filed: 06/21/19 07:31> Vital Signs (Past 12 Hours) Vital Signs Temp Pulse Resp BP Pulse Ox 06/21/19 04:10 36.5 C 59 L 18 103/67 95 06/20/19 23:05 36.6 C 60 20 100/62 97 06/20/19 22:19 18 95 06/20/19 21:02 20 97 06/20/19 20:10 36.6 C 64 18 101/63 95 <Ange Galindo MD, FACOG - Last Filed: 06/21/19 07:46> Co-Signing Physician Notes Resident Physician Supervision Note: I was present with Dr. Hidalgo during the history and exam. I discussed the case with the resident and agree with the findings and plan as documented in the note. Any exceptions or clarifications are listed here: [None] Documented By: Ange Galindo MD, FACOG Resident Activity Tracking <Wesly Hidalgo DO - Last Filed: 06/21/19 07:31> Resident Involvement: Resident Care Provided Care Provided: OB Delivery
[2019-06-21] MEDS: FERROUS SULFATE 325 MG TAB PO SCH (09:02)
[2019-06-21] MEDS: DOCUSATE SODIUM 100 MG CAP PO SCH ×2 (09:02→21:25)
[2019-06-21] MEDS: SIMETHICONE 80 MG CHEW PO SCH ×4 (09:03→21:25)
[2019-06-21] MEDS: IBUPROFEN 600 MG TAB PO PRN ×2 (09:03→21:26)
[2019-06-21] MEDS: PRENATAL VITAMIN 1 TAB PO SCH (09:03)
[2019-06-21] MEDS ORDERED: HYDROCORTISONE 1% CRM 30 GM TUBE EXT PRN (11:38)
[2019-06-21] MEDS: DiphenhydrAMINE 2%/ZINC 0.1% CREAM 28GM TUBE EXT PRN ×2 (15:43→21:29)
[2019-06-21] MEDS ORDERED: BISACODYL 5 MG TABEC PO SCH (20:00)
[2019-06-22] MEDS ORDERED: BISACODYL 10 MG SUPP PR PRN (04:38)
[2019-06-22 06:25] LABS: Hematocrit (blood only) 29.5 % (37-47); Hemoglobin 9.8 g/dL (12.0-16.0)
[2019-06-22] MEDS: PRENATAL VITAMIN 1 TAB PO SCH (08:12)
[2019-06-22] MEDS: FERROUS SULFATE 325 MG TAB PO SCH (08:12)
[2019-06-22] MEDS: IBUPROFEN 600 MG TAB PO PRN ×3 (08:12→20:28)
[2019-06-22] MEDS: SIMETHICONE 80 MG CHEW PO SCH ×2 (08:12→20:28)
[2019-06-22] MEDS: DOCUSATE SODIUM 100 MG CAP PO SCH ×2 (08:12→20:28)
--- NOTE | 2019-06-22 08:14 | Obstetrical Progress Note ---
Date of Service June 22, 2019 Assessment & Plan (1) Encounter for care and examination after delivery: continue current care plan Subjective Ambulation: ambulating normally Voiding: no voiding problems Passing Gas:: Yes Diet Tolerance:: regular diet Lochia:: Small Feeding Type:: breast feeding has pruritic rash where contraction belt was - tried the Benadryl cream & hydrocortisone cream which didn't help very much. incision pain is minimal- taking only ibuprofen for pain. Review of Systems All systems reviewed & are unremarkable except as noted in HPI & below Constitutional: + as per Subjective / HPI Physical Exam Constitutional WD/WN, vitals as above Gastrointestinal (Abdomen) Inspection/Auscultation: + abdominal surgical incision (dry & intact, no cellulitis) Percussion/Palpation: + abdomen tender (appropriate for post-op) and abdomen soft Psychiatric A+Ox3, euthymic affect Genitourinary OB Exam Abdomen: + fundal height Fundus: + firm and + relation to umbilicus (2 below); not tender Results & Data Vital Signs (Past 12 Hours) Vital Signs Temp Pulse Resp BP Pulse Ox 06/22/19 07:15 97.7 F 59 L 14 109/63 98 06/21/19 23:30 97.7 F 65 14 106/62 96 06/21/19 20:15 97.3 F L 75 14 115/73 98
--- NOTE | 2019-06-23 05:51 | Obstetrical Progress Note ---
Date of Service June 23, 2019 Assessment & Plan (1) Encounter for care and examination after delivery: Brent is a 33 yo on POD 3 after at 41 weeks for arrest of descent. - GBS + (s/p ancef in pre- period), Blood Type B+, Rubella immune -Vitals reviewed and WNL -Hemoglobin reviewed: 11.8 on arrival, down to 9.8 on 06/22. Patient is asymptomatic. Advised to supplement with oral iron following d/c -patient is doing clinically well Discharge instruction reviewed - After discharge will have [address] Martinez. Supervising Physician Co-Signing Physician Notes Resident Physician Supervision Note: I interviewed and examined the patient. Discussed with Dr. Barrientos and agree with findings and plan as documented in the note. Any exceptions or clarifications are listed here: [None] Documented By: Fabiana Loaiza MD, FACOG Subjective Pain at 2/10 in severity; well controlled with Ibuprofen. Rash on abdomen is still present and bothersome. She plans to continue to use OTC creams on it. Ambulation: ambulating normally Voiding: no voiding problems Passing Gas:: Yes Diet Tolerance:: regular diet Lochia:: Small Feeding Type:: breast feeding Review of Systems Constitutional: no fever, no chills and no sweats Respiratory: no cough and no dyspnea Cardiovascular: no chest pain and no palpitations Gastrointestinal: no nausea and no vomiting Genitourinary: no dysuria and no urinary frequency Neurologic: no headache(s) Physical Exam Constitutional: WD/WN, vitals as above no acute distress Respiratory: normal respiratory effort, lungs clear to auscultation does not use accessory muscles Auscultation: no crackles, no rhonchi, no wheezes and no pleural rub Cardiovascular: Rate/Rhythm: regular rate and regular rhythm Heart Sounds: normal S1 and normal S2; no gallop, no murmur and no cardiac rub Extremities: no calf tenderness and no pedal edema Gastrointestinal (Abdomen): Inspection/Auscultation: normal bowel sounds; abdomen not distended Percussion/Palpation: abdomen soft surgical incision: steri strips in place; minimal dried blood visible; no warmth; appropriate post-op tenderness Skin: Rash on abdomen in distribution of contraction belt. mildly erythematous Genitourinary: Uterus: fundus firm, palpable 1 cm below the umbilicus Results & Data Vital Signs (Past 12 Hours) Vital Signs Temp Pulse Resp BP Pulse Ox 06/22/19 23:55 36.5 C 65 16 124/77 98 06/22/19 19:20 36.6 C 61 16 130/81 99 Laboratory Results 06/22/19 Range/Units 06:00 Hgb 9.8 L (12.0-16.0) g/dL Hct 29.5 L (37-47) %
[2019-06-23] MEDS: FERROUS SULFATE 325 MG TAB PO SCH (08:12)
[2019-06-23] MEDS: PRENATAL VITAMIN 1 TAB PO SCH (08:12)
[2019-06-23] MEDS: IBUPROFEN 600 MG TAB PO PRN ×2 (08:12→14:06)
[2019-06-23] MEDS: SIMETHICONE 80 MG CHEW PO SCH ×2 (08:12→14:07)
[2019-06-23] MEDS: DOCUSATE SODIUM 100 MG CAP PO SCH (08:12)
--- NOTE | 2019-06-26 17:46 | Discharge Summary ---
PROCEDURES WHILE ADMITTED: Low transverse section for failure of descent. HOSPITAL COURSE: The patient was admitted on 06/19/2019 at 41 weeks 0 days gestational age for induction of labor. The patient progressed slowly in labor, but did achieve complete dilation. She pushed for approximately 2 hours and 45 minutes with no descent with the baby remaining at 0 to +1 station throughout the entire time. At that point, the patient was counseled about options including continued pushing versus vacuum assisted delivery versus a section. The patient opted to proceed with a section. The procedure was performed without difficulty and was able to be achieved via a low transverse uterine incision. The patient remained in the hospital for approximately 4 days and did well without any significant issues. The patient was discharged home in stable condition with planned followup at 6 weeks . The patient was provided with both written and verbal discharge instructions and all questions answered prior to discharge.
== END 2019-06-23 15:20 | disposition home or self-care (01) | DRG 788 ==
LOC: EDSTATUS 01:48 → OPB 01:48 → 4S1 01:49 → 4N 06-20 08:30 → 4S2 06-22 11:17

== ENCOUNTER 2021-06-17 05:34 | Inpatient (IN) ==
--- NOTE | 2021-06-08 13:51 | Anesthesiology Consultation ---
Date of Service June 08, 2021 Assessment & Plan (1) Encounter for pre-operative examination: Chart Review Chart Review: parking ramp attendant initiated Per nursing assessment 06/08/2021, patient denies any recent travel. No known Covid infection in the past 90 days. Vaccinated for Covid. No known Covid positive contacts or Covid related symptoms. Preop Covid testing scheduled 06/15/21= will await results 06/20/2019 = patient had epidural cath in placedosed with 2% lidocaine 20 cc. History Surgery Operation Date: 06/17/21 07:30 Proposed Procedures p Section ( Delivery of Baby through Abdominal Incision) - Ange Galindo MD, FACOG Height/Weight Height: 5 ft 6 in Weight: 88.451 kg Allergies Allergy/AdvReac Type Severity Reaction Status Date / Time Iodine SOLN Allergy Severe Redness of Uncoded 06/08/21 13:21 Skin, rash, itching Amoxicillin TABS Allergy Unknown Rash Uncoded 06/08/21 13:21 Medications Home Medications Medication Instructions Recorded Confirmed Last Taken prenat.vits,clarence,[id number] 1 tab PO HS 03/14/19 06/08/21 06/18/19 19:30 breast pump #1 ea 06/08/21 06/08/21 Unknown Past Medical History Medical History History of varicella Hypotension normal BP 90s/60s Past Family History Family History Grandfather (Paternal) Diabetes Hypertension Father Diabetes Progressive supranuclear palsy Denies family history of Ovarian cancer Breast cancer Colorectal cancer Past Surgical History Surgical History History of ankle surgery History of History of wisdom tooth extraction Social History Smoking Status: Never smoker Do You Dip or Chew Tobacco: No Hx Alcohol Use: No Hx Substance Use: No substance use type: does not use
--- NOTE | 2021-06-16 16:37 | History & Physical Report ---
Date of Service June 16, 2021 Assessment & Plan (1) Previous section complicating : Plan: Repeat section. The patient was counseled to the nature of the procedure including alternatives such as labor. Risks were discussed including bleeding infection injury to bowel bladder ureter vessels and even baby. The risks of internal organ injury were discussed as being higher with prior sections. Deep Vein Thrombosis, pulmonary em bolus and breakdown of the incision discussed. Deep vein thrombosis pulmonary embolus hernia and failure of the incision to heal were discussed Patient verbalized understanding of this and was given ample time to ask questions History of Present Illness Primary Care Provider: Jimmie Menchaca DO repeat C/S at 39+ weeks Allergies Allergy/AdvReac Type Severity Reaction Status Date / Time Iodine SOLN Allergy Severe Redness of Uncoded 06/08/21 13:21 Skin, rash, itching Amoxicillin TABS Allergy Unknown Rash Uncoded 06/08/21 13:21 Home Medications Medication Instructions Recorded Confirmed Type prenat.vits,clarence,[id number] 1 tab PO HS 03/14/19 06/16/21 History breast pump #1 ea 06/08/21 06/16/21 Rx Patient History Medical History History of varicella Hypotension normal BP 90s/60s Surgical History History of ankle surgery History of History of wisdom tooth extraction Family History Grandfather (Paternal) Diabetes Hypertension Father Diabetes Progressive supranuclear palsy Denies family history of Ovarian cancer Breast cancer Colorectal cancer Social History Smoking Status: Never smoker Second Hand Exposure: No; Hx Alcohol Use: No Hx Substance Use: No Preferred Language: Icelandic Communication Ability: Effective Contract Officer Required: No Beliefs That Will Affect Care: None marital status: marital status details: Nickolas Dudley (34) [phone] Current Living Situation: Spouse Current Living Situation Comment: lives with spouse, child, no pets current occupational status: employed 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
[2021-06-17] MEDS ORDERED: GENTAMICIN CONSULT ACTIVE PRN (05:37)
[2021-06-17] MEDS ORDERED: LACTATED RINGER'S 1,000 ML IV SCH ×2 (05:45→09:00)
[2021-06-17] MEDS ORDERED: CITRIC ACID/SODIUM CITRATE 15 ML UDC PO SCH (06:00)
[2021-06-17] MEDS ORDERED: CLINDAMYCIN 900 MG in DEXTROSE 5% 50 ML IV SCH (06:00)
[2021-06-17] MEDS ORDERED: GENTAMICIN SULFATE 360 MG in DEXTROSE 5% 100 ML IV SCH (06:00)
--- NOTE | 2021-06-17 06:14 | History & Physical Bridge Note ---
Date of Service June 17, 2021 History & Physical Bridge Note I have examined the patient, reviewed the History & Physical and in the interval since the performance of the History & Physical I have noted the following changes of clinical significance: no changes noted
[2021-06-17 06:31] LABS: Basophils # (auto) 0.03 K/uL (0-0.2); Basophils % (auto) 0.3 %; Eosinophils # (auto) 0.18 K/uL (0-0.5); Hematocrit (blood only) 35.3 % (37-47); Hemoglobin 11.9 g/dL (12.0-16.0); Immature Granulocytes # (auto) 0.08 K/uL (0.00-0.02); Immature Granulocytes % (auto) 0.9 %; Lymphocytes # (auto) 1.83 K/uL (1.2-3.4); Lymphocytes % (auto) 20.4 %; Mean Corpuscular Hemoglobin 30.6 pg (25-34); Mean Corpuscular Volume 90.7 fL (80-100); Mean Platelet Volume 9.9 fL (7.4-10.4); Monocytes # (auto) 1.09 K/uL (0.11-0.59); Monocytes % (auto) 12.2 %; Neutrophils # (auto) 5.74 K/uL (1.4-6.5); Neutrophils % (auto) 64.2 %; Platelet Count 202 K/uL (130-400); RDW Coefficient of Variation 13.9 % (11.5-14.5); RDW Standard Deviation 45.8 fL (36.4-46.3); Red Blood Count 3.89 M/uL (4.2-5.4); White Blood Count 8.95 K/uL (4.8-10.8)
[2021-06-17 06:37] LABS: Mean Corpuscular Hgb Conc 33.7 g/dL (32-36)
[2021-06-17] MEDS ORDERED: MoRPHine SULFATE PF 1 MG/ML 10 ML AMP/VIAL ONE (07:21)
[2021-06-17] MEDS ORDERED: LACTATED RINGER'S 500 ML IV PRN (08:23)
[2021-06-17] MEDS ORDERED: diphenhydrAMINE 50 MG/ML VIAL IV PRN (08:23)
[2021-06-17] MEDS ORDERED: MoRPHine SULFATE PF 1 MG/ML 10 ML AMP/VIAL INT SPINAL ONE (08:23)
[2021-06-17] MEDS ORDERED: HYDROmorphone INJ 0.5 MG/0.5 ML SYR IV PRN (08:23)
[2021-06-17] MEDS ORDERED: ePHEDrine sulfate 50 MG/ML AMP IV PRN (08:23)
[2021-06-17] MEDS ORDERED: PROMETHAZINE HCL 12.5 MG in SODIUM CHLORIDE 0.9% 50 ML IV PRN (08:23)
[2021-06-17] MEDS ORDERED: NALBUPHINE HCL INJ 10 MG/ML AMP IV PRN (08:23)
[2021-06-17] MEDS ORDERED: MEPERIDINE HCL 25 MG/ML CARP/VIAL IV PRN (08:23)
[2021-06-17] MEDS ORDERED: MoRPHine SULFATE 2 MG/ML CARP IV PRN (08:23)
[2021-06-17] MEDS ORDERED: NALOXONE HCL 1 MG in SODIUM CHLORIDE 0.9% 1000ML 1,000 ML IV PRN (08:23)
[2021-06-17] MEDS ORDERED: METOCLOPRAMIDE HCL 10 MG in SODIUM CHLORIDE 0.9% 50 ML IV PRN (08:23)
[2021-06-17] MEDS ORDERED: NALOXONE HCL 0.4 MG/1 ML VIAL/CARP IV PRN (08:23)
[2021-06-17] MEDS ORDERED: NALOXONE HCL 0.08 MG in SYRINGE 1.8 ML IV PRN (08:23)
[2021-06-17] MEDS ORDERED: ONDANSETRON INJ 2 MG/ML 2 ML VIAL IV PRN (08:23)
[2021-06-17] MEDS ORDERED: OXYTOCIN 10 UNITS/ML VIAL ONE (08:27)
[2021-06-17] MEDS ORDERED: ePHEDrine sulfate 50 MG/ML AMP ONE (08:27)
[2021-06-17] MEDS ORDERED: PHENYLEPHRINE 100MCG/ML 5ML SYR ONE (08:27)
[2021-06-17] MEDS ORDERED: NO NARCOTICS OR SEDATIVES SCH (08:30)
[2021-06-17] MEDS ORDERED: SODIUM CHLORIDE 0.9% 1000ML 1,000 ML IV SCH (08:30)
[2021-06-17] MEDS ORDERED: DC INTRASPINAL MORPHINE SCH (08:30)
[2021-06-17] MEDS ORDERED: SENNA 8.6 MG TAB PO PRN (08:49)
[2021-06-17] MEDS ORDERED: SUPERCREAM 0.870% 15 GM JAR EXT PRN (08:49)
[2021-06-17] MEDS ORDERED: MAGNESIUM HYDROXIDE SUSP 30 ML UDC PO PRN (08:49)
[2021-06-17] MEDS ORDERED: HYDROCORTISONE ACETATE 25 MG SUPP PR PRN (08:49)
[2021-06-17] MEDS ORDERED: DIPHTHERIA/TETANUS/PERTUSSIS 0.5 ML SYR/VIAL IM ONE (08:49)
[2021-06-17] MEDS ORDERED: BENZOCAINE 20% AER SPR 82.5 GM CAN EXT PRN (08:49)
[2021-06-17 09:02] LABS: Base Excess Cord Arterial Bld -1.7 mEq/L (-9-1.8); CO2 Cord Arterial Blood 73 mmHg (39.1-73.5); HCO3 Cord Arterial Blood 29 mmol/L (19.7-28.5); PO2 Cord Arterial Blood 12 mmHg (4.1-31.7); pH Cord Arterial Blood 7.21 (7.1-7.38)
[2021-06-17 09:09] LABS: Base Excess Cord Venous Blood 0.3 mEq/L (-7.7-1.9); Cord Venous Blood HCO3 26 mmol/L (18.4-26.8); Cord Venous Blood PCO2 48 mmHg (30.4-57.2); Cord Venous Blood PO2 29 mmHg (14.1-43.3); Cord Venous Blood pH 7.36 (7.20-7.44)
--- NOTE | 2021-06-17 09:33 | Anesthesiology Progress Note ---
Date of Service June 17, 2021 Anesthesia Post Procedure Vital Signs Vital Signs: Temp Pulse Resp BP Pulse Ox 06/17/21 09:29 99 H 100 06/17/21 09:26 84 102/61 06/17/21 09:24 94 H 100 06/17/21 09:19 77 100 06/17/21 09:15 87 20 117/63 06/17/21 09:14 87 100 06/17/21 09:09 83 100 06/17/21 09:06 73 116/63 06/17/21 09:05 20 06/17/21 09:04 83 100 06/17/21 08:59 92 H 100 06/17/21 08:55 36.5 C 82 20 112/61 06/17/21 08:54 94 H 100 06/17/21 07:03 36.5 C 79 20 100/56 L 06/17/21 05:47 86 111/68 06/17/21 05:45 36.9 C 18 Transfer of Care Handoff Completed per policy Notes Mental Status: alert / awake / arousable and participated in evaluation Patient Amnestic to Procedure: Yes Nausea / Vomiting: adequately controlled Pain: adequately controlled Airway Patency, RR, SpO2: stable & adequate BP & HR: stable & adequate Hydration State: stable & adequate Neuraxial Anesthesia: was administered and sensory block is resolving Anesthetic Complications: no major complications apparent
--- NOTE | 2021-06-17 10:07 | Operative Report ---
PG Post Operative Report Pre & Post Diagnosis Operation Date: 06/17/21 07:30 Pre-Op Diagnosis: 1. Term at 39 weeks. 2. Previous c/section desires repeat c/section. Post-Op Diagnosis: Same I identified the patient and participated in the time-out.: Yes Procedure Operation Date: 06/17/21 07:30 Actual Procedures p Section (Delivery of Baby through Abdominal Incision) with the of a live male child at 0813 in Main OR 3. (Bilateral) - Ange Galindo MD, FACOG Surgeon Ange Galindo MD, FACOG Splitter Operator Resident Estimated Blood Loss 600 Findings Consistent with Post-Op Diagnosis normal anatomy Specimens cord gases cord blood Description of Procedure Regional anesthetic was given by anesthesia patient had a Breen catheter inserted by nursing patient was prepped and draped in supine position with a leftward tilt preoperative antibiotics were given timeout performed Pickups with teeth were used to test the skin site and it was found adequate for incision scalpel used to make a Pfannenstiel incision cutting down through subcutaneous fat through the fascia fascia was then dissected laterally with the curved Kessler's fascia was released superiorly and inferiorly from the rectus muscles with the curved Kessler scissors, rectus muscle split peritoneal cavity entered in a superior location. Opening enlarged to allow exposure bladder retractor placed Metzenbaums used to dissect away the bladder flap low segment transverse incision made on the uterus with scalpel entry was done bluntly with the lithographic camera operator's finger hysterotomy incision extended with the lithographic camera operator's finger in the usual fashion baby was delivered then by flexion of the head and pressure from the assistant football coach on the abdomen, however it would not come easily, so a vacuum was applied. several pop offs, but eventually able to get the baby's head out. mouth and then nares were suctioned baby was then delivered fully without difficulty without excessive force live vigorous infant cord clamped and cut cord gases obtained cord blood obtained placenta removed manually within ensured all placenta removed with a moist lap sponge uterus exteriorized IV Pitocin had been started by anesthesia and uterine tone improved. The uterus was closed in 2 layers first layer and 0 Monocryl running locked second layer 0 Monocryl nonlocked after generous irrigation and suction of the cul-de-sac and bladder flap regions hemostasis was excellent uterus was placed back in the peritoneal cavity and hemostasis was excellent rectus muscles were inspected and found to be dry fascia closed with 0 Vicryl subcutaneous fat closed with 3-0 Vicryl prior to this subcutaneous fat was irrigated skin closed with 4-0 subcuticular Monocryl incision Steri-Stripped urine was clear at the end of the procedure The ovaries both appeared normal with no obvious abnormalities I attest to the content of the Intraoperative Record and any orders documented therein. Any exceptions are noted below. OB Procedure Charges 00248
[2021-06-17 10:11] LABS: Oxygen Sat Cord Arterial Blood < 60.0 % (<60)
[2021-06-17] MEDS: SIMETHICONE 80 MG CHEW PO SCH ×3 (15:03→20:30)
[2021-06-17] MEDS ORDERED: LACTATED RINGER S IV SCH (15:15)
[2021-06-17] MEDS ORDERED: OXYTOCIN IV SCH (15:15)
[2021-06-17] MEDS: OXYTOCIN 20 UNITS in LACTATED RINGER'S 1,000 ML IV SCH ×2 (15:45→23:24)
[2021-06-17] MEDS ORDERED: KETOROLAC 30 MG/ML VIAL IV STA (20:18)
[2021-06-17] MEDS ORDERED: KETOROLAC 30 MG/ML VIAL IV PRN (20:22)
[2021-06-17] MEDS: DOCUSATE SODIUM 100 MG CAP PO SCH (20:30)
[2021-06-17] MEDS ORDERED: LACTATED RINGER'S 500 ML IV ONE (23:40)
[2021-06-18] MEDS ORDERED: MEPERIDINE HCL 50 MG/ML CARP IV PRN (02:24)
[2021-06-18] MEDS ORDERED: PROMETHAZINE HCL 25 MG in SODIUM CHLORIDE 0.9% 50 ML IV PRN (02:24)
[2021-06-18] MEDS ORDERED: KETOROLAC 30 MG/ML VIAL IV PRN (02:24)
[2021-06-18] MEDS ORDERED: diphenhydrAMINE 50 MG/ML VIAL IV PRN (02:24)
[2021-06-18] MEDS ORDERED: ONDANSETRON INJ 2 MG/ML 2 ML VIAL IV PRN (02:24)
[2021-06-18] MEDS ORDERED: oxyCODONE/ACETAMINOPHEN 5mg/325mg TAB PO PRN (02:24)
[2021-06-18] MEDS ORDERED: diphenhydrAMINE Capsule 25 MG CAP PO PRN (02:24)
--- NOTE | 2021-06-18 06:25 | Obstetrical Progress Note ---
Date of Service <Sathya Ortiz DO - Last Filed: 06/18/21 07:20> June 18, 2021 Assessment & Plan <Sathya Ortiz DO - Last Filed: 06/18/21 07:20> (1) Encounter for care and examination after delivery: 35 yo post op day 1 from -section, doing well. -Continue routine post care. - vital signs reviewed and WNL. (Tmax 36.9) -Blood type B+, GBS -, Rubella Immune -Encourage ambulation, monitor and control pain with Motrin, tylenol PRN, resume regular diet, monitor lochia. -encourage breast feeding -hemoglobin 11.9 <Ange Galindo MD, FACOG - Last Filed: 06/18/21 07:23> (1) Encounter for care and examination after delivery: Subjective <Sathya Ortiz - Last Filed: 06/18/21 07:20> Ambulation: ambulating normally Voiding: no voiding problems Passing Gas:: Yes Diet Tolerance:: regular diet Lochia:: Small Feeding Type:: breast feeding Current Pain Level(1-10): 0 Review of Systems Denies fever, chills, sweats Denies shortness of breath, difficulty breathing, chest pain, palpitations, chest pressure. Denies breast pain. Denies dysuria. Denies headache or changes in vision Physical Exam <Sathya Ortiz - Last Filed: 06/18/21 07:20> General: Alert, oriented. No acute distress. Cardiac: Regular rate and rhythm, no murmurs/rubs/gallops. Respiratory: Clear to auscultation bilaterally a/p, no wheezes/rales/rhonchi. No increased work of breathing. Symmetrical chest rise. No respiratory distress. Abdomen: Soft, nontender, nondistended. Bowel sounds present. Uterus: Uterine fundus firm, palpable 1 cm below umbilicus. Surgical scar clean and healing well. Lower Extremities: No lower extremity edema or swelling. No deep calf pain. Deisy's negative bilaterally Results & Data ([facility]) <Sathya Hodgebridgetjose - Last Filed: 06/18/21 07:20> Vital Signs (Past 12 Hours) Vital Signs Temp Pulse Resp BP Pulse Ox 06/18/21 03:20 36.7 C 78 18 112/71 98 06/18/21 02:23 16 98 06/18/21 01:15 14 100 06/18/21 00:16 16 100 06/17/21 23:35 36.6 C 78 18 99/70 L 98 06/17/21 22:00 16 98 06/17/21 21:00 16 97 06/17/21 19:50 16 97 06/17/21 19:30 36.2 C L 88 16 97/62 L 97 06/17/21 19:05 16 96 <Ange Galindo MD, FACOG - Last Filed: 06/18/21 07:23> Co-Signing Physician Notes Resident Physician Supervision Note: I was present with Dr. Ortiz during the history and exam. I discussed the case with the resident and agree with the findings and plan as documented in the note. Any exceptions or clarifications are listed here: [None] Documented By: Ange Galindo MD, FACOG Resident Activity Tracking <Sathya Ortiz DO - Last Filed: 06/18/21 07:20> Resident Involvement: Resident Care Provided Care Provided: OB Delivery
[2021-06-18] MEDS: DOCUSATE SODIUM 100 MG CAP PO SCH ×2 (07:45→21:14)
[2021-06-18] MEDS: SIMETHICONE 80 MG CHEW PO SCH ×4 (07:45→21:13)
[2021-06-18] MEDS ORDERED: NON-FORMULARY MEDICATION (Breast Pump device) SCH (09:00)
[2021-06-18] MEDS: IBUPROFEN 600 MG TAB PO PRN ×3 (09:03→20:05)
[2021-06-18] MEDS: PRENATAL VITAMIN 1 TAB PO SCH (09:03)
[2021-06-18 09:42] LABS: Basophils # (auto) 0.01 K/uL (0-0.2); Basophils % (auto) 0.1 %; Eosinophils # (auto) 0.04 K/uL (0-0.5); Eosinophils % (auto) 0.4 %; Hematocrit (blood only) 32.4 % (37-47); Immature Granulocytes # (auto) 0.08 K/uL (0.00-0.02); Immature Granulocytes % (auto) 0.8 %; Lymphocytes # (auto) 1.29 K/uL (1.2-3.4); Lymphocytes % (auto) 12.3 %; Mean Corpuscular Hemoglobin 30.9 pg (25-34); Mean Platelet Volume 9.9 fL (7.4-10.4); Monocytes % (auto) 8.6 %; Neutrophils # (auto) 8.13 K/uL (1.4-6.5); Neutrophils % (auto) 77.8 %; Platelet Count 189 K/uL (130-400); RDW Coefficient of Variation 13.8 % (11.5-14.5); RDW Standard Deviation 45.6 fL (36.4-46.3); Red Blood Count 3.56 M/uL (4.2-5.4); White Blood Count 10.45 K/uL (4.8-10.8)
[2021-06-18] MEDS: ACETAMINOPHEN 500 MG TAB PO PRN ×2 (10:01→15:33)
[2021-06-18] MEDS: FERROUS SULFATE 325 MG TAB PO SCH (15:34)
[2021-06-18] MEDS ORDERED: bisacodyL 5 MG TABEC PO SCH (20:00)
[2021-06-19] MEDS: ACETAMINOPHEN 500 MG TAB PO PRN ×2 (00:27→08:36)
[2021-06-19] MEDS: IBUPROFEN 600 MG TAB PO PRN (05:39)
[2021-06-19 06:18] LABS: Hematocrit (blood only) 30.1 % (37-47); Hemoglobin 10.1 g/dL (12.0-16.0)
--- NOTE | 2021-06-19 07:58 | Obstetrical Progress Note ---
Date of Service June 19, 2021 Assessment & Plan (1) state: 35 yo POD2 from repeat CS, doing well -Meeting all pp milestones -B+/rubella immune/ -f/u 6 weeks for appt, stable for d/c home today Subjective Ambulation: ambulating normally Voiding: no voiding problems Passing Gas:: Yes Diet Tolerance:: regular diet Lochia:: Small Feeding Type:: breast feeding Pain well managed with medication Review of Systems Denies fevers, chills, n/v, RUIZ, CP, SOB Physical Exam Constitutional WD/WN, vitals as above no acute distress Respiratory normal respiratory effort, lungs clear to auscultation Cardiovascular RRR, no murmur, no edema Gastrointestinal (Abdomen) Inspection/Auscultation: abdomen normal to inspection and + abdominal surgical scar (c/d/i) Percussion/Palpation: abdomen soft; abdomen nontender fundus firm at umbilicus and NT Musculoskeletal BLE symmetric, nonerythematous, nontender Results & Data ([facility]) Vital Signs (Past 12 Hours) Vital Signs Temp Pulse Resp BP 06/19/21 00:01 98.1 F 78 18 104/67
[2021-06-19] MEDS: FERROUS SULFATE 325 MG TAB PO SCH (08:36)
[2021-06-19] MEDS: DOCUSATE SODIUM 100 MG CAP PO SCH (08:36)
[2021-06-19] MEDS: SIMETHICONE 80 MG CHEW PO SCH (08:37)
[2021-06-19] MEDS: PRENATAL VITAMIN 1 TAB PO SCH (08:37)
[2021-06-19] MEDS ORDERED: bisacodyL 10 MG SUPP PR PRN (08:49)
--- NOTE | 2021-06-20 20:31 | Discharge Summary ---
Date of Service June 20, 2021 Admission HPI Per Admitting Provider repeat C/S at 39+ weeks Admission Exam (Per Admitting) Constitutional WD/WN, vitals as above well developed and well nourished Respiratory normal respiratory effort, lungs clear to auscultation normal respiratory effort Cardiovascular RRR, no murmur, no edema Gastrointestinal (Abdomen) normal bowel sounds, soft, nontender, no hepatosplenomegaly Discharge Data Consultations 06/17/21 05:37 Consult Anesthesiology Stat Procedures Performed Operation Date: 06/17/21 07:30 Actual Procedures p Section (Delivery of Baby through Abdominal Incision) with the of a live male child at 0813 in [facility] OR 3. (Bilateral) - Ange Galindo MD, FACOG Hospital Course (1) state: 35 yo POD2 from repeat CS, doing well -Meeting all pp milestones -B+/rubella immune/ -f/u 6 weeks for appt, stable for d/c home today Coding Level of Care Code None Diagnoses state Z39.2
== END 2021-06-19 09:35 | disposition home or self-care (01) | DRG 788 ==
LOC: 4S1 05:34 → EDSTATUS 07:30 → 4S2 11:55

== ENCOUNTER 2023-07-20 05:35 | Inpatient (IN) ==
--- NOTE | 2023-07-16 09:46 | Anesthesiology Consultation ---
Date of Service July 16, 2023 Assessment & Plan (1) Encounter for pre-operative examination: Chart Review Chart Review: data entry specialist initiated -Infectious Disease screening: Per PAT nursing assessment on 07/16/23. No known infectious disease contacts in past 10 days or current infectious disease symptoms. No recent travel outside the country. Repeat 06/17/21= Done under SAB at L3-4 with 1 attempt History Surgery Operation Date: 07/20/23 07:30 Proposed Procedures p Section (Delivery of Baby Through Abdominal Incision) - Ange Galindo MD, FACOG Height/Weight Height: 5 ft 5 in Weight: 90.718 kg Allergies Allergy/AdvReac Type Severity Reaction Status Date / Time amoxicillin Allergy Unknown Rash Verified 07/16/23 09:16 iodine Allergy Unknown Redness of Verified 07/16/23 09:16 skin, rash, itching - severe swelling at site Medications Home Medications Medication Instructions Recorded Confirmed Last Taken prenat.vits,clarence,[id number] 2 tab PO HS 03/14/19 07/16/23 06/18/19 19:30 Thytrophin Pmg 1 - 2 tab PO UD 07/16/23 07/16/23 Unknown Past Medical History Medical History (Updated 07/16/23 @ 09:44 by Rajwinder Zafar PA-C) History of hyperthyroidism takes daily supplement per PCP suggestion TSH WNL 12/2022 Per records - actually history of elevated TSH in the past (possible hypothyroidism) Hypotension normal BP 90s/60s History of varicella Past Family History Family History Grandfather (Paternal) Diabetes Hypertension Father Diabetes Progressive supranuclear palsy Denies family history of Ovarian cancer Breast cancer Colorectal cancer Past Surgical History Surgical History History of 2020 History of ankle surgery right History of wisdom tooth extraction Social History Smoking Status: Never smoker Do You Dip or Chew Tobacco: No Hx Alcohol Use: Yes (not while ) alcohol intake frequency: holidays/special occasions only Hx Substance Use: No substance use type: does not use
[2023-07-20] MEDS ORDERED: SODIUM CHLORIDE 0.9% 250 ML IV PRN (05:39)
[2023-07-20] MEDS ORDERED: LACTATED RINGER'S 1,000 ML IV SCH ×2 (06:00→11:00)
[2023-07-20] MEDS ORDERED: CITRIC ACID/SODIUM CITRATE 15 ML UDC PO SCH (06:00)
[2023-07-20] MEDS ORDERED: ceFAZolin 2000MG 2,000 MG/15 ML SYR IV SCH (06:00)
[2023-07-20] MEDS ORDERED: ceFAZolin 2,000 MG in SYRINGE 0 ML IV SCH (06:00)
[2023-07-20 06:25] LABS: Basophils # (auto) 0.03 K/uL (0.00-0.20); Basophils % (auto) 0.3 %; Eosinophils % (auto) 1.8 %; Hematocrit (blood only) 33.1 % (37.0-47.0); Hemoglobin 11.7 g/dl (12.0-16.0); Immature Granulocytes # (auto) 0.18 K/uL (0.01-0.20); Immature Granulocytes % (auto) 1.6 %; Lymphocytes # (auto) 2.01 K/uL (1.20-3.40); Lymphocytes % (auto) 18.2 %; Mean Corpuscular Hemoglobin 31.3 pg (25.0-34.0); Mean Corpuscular Hgb Conc 35.3 g/dL (32.0-36.0); Mean Corpuscular Volume 88.5 fL (80.0-100.0); Monocytes % (auto) 10.8 %; Neutrophils # (auto) 7.44 K/uL (1.40-6.50); Neutrophils % (auto) 67.3 %; Platelet Count 179 K/uL (130-400); RDW Coefficient of Variation 13.2 % (11.5-14.5); RDW Standard Deviation 42.2 fL (36.4-46.3); Red Blood Count 3.74 M/uL (4.20-5.40); White Blood Count 11.06 K/ul (4.8-10.8)
--- NOTE | 2023-07-20 06:58 | History & Physical Report ---
Date of Service July 20, 2023 Assessment & Plan (1) Encounter for pre-operative examination: Plan: Repeat section. The patient was counseled to the nature of the procedure including alternatives such as labor. Risks were discussed including bleeding infection injury to bowel bladder ureter vessels and even baby. The risks of internal organ injury were discussed as being higher with prior sections. Deep Vein Thrombosis, pulmonary embolus and breakdown of the incision discussed. Deep vein thrombosis pulmonary embolus hernia and failure of the incision to heal were discussed Patient verbalized understanding of this and was given ample time to ask questions Admission and Anticipated Discharge Date Admission Date: July 20, 2023 History of Present Illness Primary Care Provider: Jimmie Menchaca DO 39 weeks repeat c/s 2 prior Current Estimate 07/27/23 LMP (Certain) 38w 6d Other Estimates 07/30/23 Ultrasound #1 38w 3d LMP: 10/20/22 : 4 Full term: 2 Premature: 0 Total Number of Induced Abortions: 0 Total Number of Spontaneous Abortions: 1 Ectopics: 0 Multiple births: 0 Number of Living Children: 2 and Delivery Plans Prior Section affecting previous c/s x 2 C/S SCHEDULED FOR 07/20/[address] CEE AND DR. DUMONT ASSIST Elevated TSH at [facility] - [place] [facility] [place] 3.1cm fibroid, L 1.7cm solid mass suspected fibroma on dating US AMA *Weekly NST's @ 36 wks. Iodine Allergy Not covid vaccine GBS positive in Urine *Treat in Labor Allergies Allergy/AdvReac Type Severity Reaction Status Date / Time iodine Allergy Severe Redness of Verified 07/20/23 06:09 skin, rash, itching - severe swelling at site amoxicillin Allergy Mild Rash Verified 07/20/23 06:09 Home Medications Medication Instructions Recorded Confirmed Type prenat.vits,clarence,vto-vflc-sbtgt 2 tab PO HS 03/14/19 07/19/23 History Thytrophin Pmg 1 - 2 tab PO UD 07/16/23 07/19/23 History Patient History Medical History History of hyperthyroidism takes daily supplement per PCP suggestion TSH WNL 12/2022 Per records - actually history of elevated TSH in the past (possible hypothyroidism) Hypotension normal BP 90s/60s History of varicella Surgical History History of 2020 History of ankle surgery right History of wisdom tooth extraction Family History Grandfather (Paternal) Diabetes Hypertension Father Diabetes Progressive supranuclear palsy Denies family history of Ovarian cancer Breast cancer Colorectal cancer Social History Smoking Status: Never smoker Second Hand Exposure: No; Do You Dip or Chew Tobacco: No; Tobacco Cessation Education Requested by Patient: No Hx Alcohol Use: Yes (not while ) Hx Substance Use: No Preferred Language: Macedonian Communication Ability: Effective Clam Picker Required: No Beliefs That Will Affect Care: None marital status: marital status details: Nickolas Dudley (36) [phone] Current Living Situation: Spouse Current Living Situation Comment: lives with spouse, children, no pets current occupational status: employed 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 Other Information That Helps Us Care for You: No Feels Safe at Home: Yes Safety Concerns: Feels Safe At This Time Assistive Devices: Glasses Physical Exam Constitutional: WD/WN, vitals as above well developed and well nourished Respiratory: normal respiratory effort, lungs clear to auscultation normal respiratory effort Cardiovascular: RRR, no murmur, no edema Gastrointestinal (Abdomen): normal bowel sounds, soft, nontender, no hepatosplenomegaly Results & Data Vital Signs (Past 12 Hours) Vital Signs Temp Pulse Resp BP 07/20/23 06:11 88 96/55 L 07/20/23 06:10 98.2 F 18 07/20/23 06:08 83 105/57 L 07/20/23 06:02 69 59/38 L 07/20/23 05:59 76 68/32 L 07/20/23 05:58 77 67/37 L 07/20/23 05:47 93 H 112/72 Coding Level of Care Code None Diagnoses Encounter for pre-operative examination Z01.818
[2023-07-20] MEDS ORDERED: MoRPHine SULFATE PF 1 MG/ML 10 ML AMP/VIAL ONE (07:37)
[2023-07-20] MEDS ORDERED: MoRPHine SULFATE 2 MG/ML CARP IV PRN (08:32)
[2023-07-20] MEDS ORDERED: HYDROmorphone INJ 0.5 MG/0.5 ML SYR IV PRN (08:32)
[2023-07-20] MEDS ORDERED: MoRPHine SULFATE PF 1 MG/ML 10 ML AMP/VIAL INT SPINAL ONE (08:32)
[2023-07-20] MEDS ORDERED: LACTATED RINGER'S 500 ML IV PRN (08:32)
[2023-07-20] MEDS ORDERED: PROMETHAZINE HCL 12.5 MG in SODIUM CHLORIDE 0.9% 50 ML IV PRN (08:32)
[2023-07-20] MEDS ORDERED: NALOXONE HCL 1 MG in SODIUM CHLORIDE 0.9% 1,000 ML IV PRN (08:32)
[2023-07-20] MEDS ORDERED: NALBUPHINE HCL 5 MG in SYRINGE 0 ML IV PRN (08:32)
[2023-07-20] MEDS ORDERED: ONDANSETRON INJ 2 MG/ML 2 ML VIAL IV PRN (08:32)
[2023-07-20] MEDS ORDERED: diphenhydrAMINE 50 MG/ML VIAL IV PRN (08:32)
[2023-07-20] MEDS ORDERED: MEPERIDINE HCL 25 MG/ML CARP/VIAL IV PRN (08:32)
[2023-07-20] MEDS ORDERED: NALOXONE HCL 0.08 MG in SYRINGE 1.8 ML IV PRN (08:32)
[2023-07-20] MEDS ORDERED: ePHEDrine sulfate 50 MG/ML AMP IV PRN (08:32)
[2023-07-20] MEDS ORDERED: NALOXONE HCL 0.4 MG/1 ML VIAL/CARP IV PRN (08:32)
[2023-07-20] MEDS ORDERED: METOCLOPRAMIDE HCL 10 MG in SODIUM CHLORIDE 0.9% 50 ML IV PRN (08:32)
[2023-07-20] MEDS ORDERED: fentaNYL citrate PF 100 MCG/2 ML VIAL ONE (08:37)
[2023-07-20] MEDS ORDERED: SODIUM CHLORIDE 0.9% 1,000 ML IV SCH (08:45)
[2023-07-20] MEDS ORDERED: NO NARCOTICS OR SEDATIVES SCH (08:45)
[2023-07-20] MEDS ORDERED: OXYTOCIN 10 UNITS/ML VIAL ONE (08:46)
[2023-07-20] MEDS ORDERED: PHENYLEPHRINE 100MCG/ML 10ML SYR IV ONE (08:46)
[2023-07-20] MEDS ORDERED: ePHEDrine sulfate 50 MG/5 ML SYR ONE (08:46)
--- NOTE | 2023-07-20 08:48 | Operative Report ---
PG Post Operative Report Pre & Post Diagnosis Operation Date: 07/20/23 07:30 Pre-Op Diagnosis: 1. 39 Weeks IUP 2. Previous x 2 Post-Op Diagnosis: 1. Same I identified the patient and participated in the time-out.: Yes Procedure Operation Date: 07/20/23 07:30 Actual Procedures p Section in LD; Repeat Lower Uterine Transverse Section for the of a live boy at 0808(Bilateral) - Ange Galindo MD, FACOG Surgeon Ange Galindo MD, FACOG Drying Oven Tender Art Yanes Estimated Blood Loss 600 Findings Consistent with Post-Op Diagnosis Specimens cord blood Description of Procedure Regional anesthetic had been given by anesthesia patient was prepped and draped with a leftward tilt preoperative antibiotics had been given in appropriate timing by anesthesiology. Once the prep was allowed to fully dry timeout was performed. Pickups with teeth were used to test the incision area was found to be adequate for incision as the patient did not feel sharp pain. Scalpel was used to make a Pfannenstiel incision on the lower abdomen. We then cut through the subcutaneous fat down to the level of the anterior rectus sheath fascia this was cut in the midline and then extended laterally with the curved Kessler scissors. At this stage we then placed 2 Sunshine clamps on the anterior aspect of the fascia. Using the curved Kessler's we are able to dissect the fascia superiorly away from the rectus muscles. Care was taken to maintain hemostasis. Sunshine clamps were then placed to the inferior aspect of the anterior sheath of the fascia. Fascia was then dissected away from the rectus muscles inferiorly towards the pubic bone. A Sunshine was then placed in the midline both inferiorly and superiorly. This was to allow exposure by retraction rectus muscles were in the midline with were then able to cut through the peritoneum and then enter the peritoneal cavity. Opening was enlarged to allow exposure of the peritoneal cavity both superiorly and inferiorly. Once adequate space was obtained a bladder retractor was placed to expose the lower segment Metzenbaums were used to dissect the bladder flap inferiorly away from the uterus. This was done sharply bladder retractor was then repositioned to expose the lower segment of the uterus Fresh scalpel was used to make a low transverse incision on the uterus. Uterus was then entered bluntly with the operators finger, membranes ruptured and the opening was enlarged using the operators fingers bluntly pulling superiorly and inferiorly to allow exposure. Baby was delivered by first flexion of the head elevation of the head out of the pelvis and then pressure by the virtual office assistant on the maternal abdomen. Crystal maddox's head was then delivered mouth and then nares were suctioned and then using gentle traction the baby was fully delivered. Live vigorous . Fluid was clear cord clamped and cut cord gases obtained cord blood obtained baby handed to pediatrics. Placenta removed was removed with traction we ensure the entire placenta was removed with a moist lap sponge into the uterus Uterus was then exteriorized. IV Pitocin had been started by anesthesia tone improved there were no extensions the uterus was then closed using 0 Monocryl in a 2 layer closure the first layer closed in a running locked fashion from left to right and then a second closure from left to right in a running nonlocked fashion. At this stage hemostasis was excellent. Uterus was placed back in the peritoneal cavity with suction irrigation out and inspection of the uterus at this stage revealed excellent hemostasis Retractors were removed urine color was clear at this stage of the case we inspected the rectus muscles they were hemostatic fascia was closed with 0 Vicryl subcutaneous fat was irrigated and closed with 3-0 Vicryl skin closed with 4-0 subcuticular Monocryl Note, adnexa appeared normal, loose nuchal cord I attest to the content of the Intraoperative Record and any orders documented therein. Any exceptions are noted below. OB Procedure Charges 35169
[2023-07-20] MEDS: KETOROLAC 30 MG/ML VIAL IV PRN (09:04)
--- NOTE | 2023-07-20 10:38 | Anesthesiology Progress Note ---
Date of Service July 20, 2023 Anesthesia Post Procedure Vital Signs Vital Signs: Temp Pulse Resp BP Pulse Ox 07/20/23 10:34 94 H 99 07/20/23 10:29 93 H 99 07/20/23 10:25 83 100/55 L 07/20/23 10:24 86 100 07/20/23 10:19 92 H 99 07/20/23 10:15 16 07/20/23 10:15 88 107/56 L 07/20/23 10:14 94 H 99 07/20/23 10:09 91 H 99 07/20/23 10:05 87 106/56 L 07/20/23 10:04 90 98 07/20/23 09:59 87 100 07/20/23 09:55 88 103/61 07/20/23 09:54 88 100 07/20/23 09:49 87 99 07/20/23 09:45 16 07/20/23 09:45 84 101/58 L 07/20/23 09:44 94 H 98 07/20/23 09:39 87 99 07/20/23 09:35 20 07/20/23 09:35 84 102/57 L 07/20/23 09:34 87 99 07/20/23 09:29 91 H 98 07/20/23 09:25 16 07/20/23 09:25 90 111/58 L 07/20/23 09:24 96 H 97 07/20/23 09:19 84 98 07/20/23 09:15 16 07/20/23 09:15 100 H 114/64 07/20/23 09:14 91 H 97 07/20/23 09:09 104 H 96 07/20/23 09:05 16 07/20/23 09:05 88 104/59 L 07/20/23 09:04 84 98 07/20/23 08:59 93 H 96 07/20/23 08:56 16 07/20/23 08:56 88 108/60 07/20/23 08:54 95 H 97 07/20/23 08:49 93 H 94 07/20/23 08:46 85 94 07/20/23 08:45 36.5 C 20 07/20/23 08:45 86 109/58 L 07/20/23 08:44 86 96 07/20/23 07:36 20 07/20/23 07:36 20 07/20/23 06:11 88 96/55 L 07/20/23 06:10 36.8 C 18 07/20/23 06:08 83 105/57 L 07/20/23 06:02 69 59/38 L 07/20/23 05:59 76 68/32 L 07/20/23 05:58 77 67/37 L 07/20/23 05:47 93 H 112/72 Pain Intensity Lower Abdomen: Pain Intensity: 3 Transfer of Care Handoff Completed per policy Notes Mental Status: alert / awake / arousable and participated in evaluation Nausea / Vomiting: adequately controlled Pain: adequately controlled Airway Patency, RR, SpO2: stable & adequate BP & HR: stable & adequate Hydration State: stable & adequate Neuraxial Anesthesia: was administered and sensory block is resolving Anesthetic Complications: no major complications apparent and Pt Satisfied with anesthetic care
[2023-07-20] MEDS ORDERED: MAGNESIUM HYDROXIDE SUSP 30 ML UDC PO PRN (11:00)
[2023-07-20] MEDS ORDERED: DIPHTHERIA/TETANUS/PERTUSSIS Vaccine (Tdap, Age 7+yrs) 0.5mL SYR/VL IM ONE (11:00)
[2023-07-20] MEDS ORDERED: BENZOCAINE 20% SPRY 85 APPLN/85 GM CAN EXT PRN (11:00)
[2023-07-20] MEDS ORDERED: HYDROCORTISONE ACETATE 25 MG SUPP PR PRN (11:00)
[2023-07-20] MEDS ORDERED: SENNA 8.6 MG TAB PO PRN (11:00)
[2023-07-20] MEDS: OXYTOCIN 20 UNITS/LR 1,002 ML IV SCH (15:56)
[2023-07-20] MEDS: SIMETHICONE 80 MG CHEW PO SCH ×3 (15:58→20:57)
[2023-07-20] MEDS: DOCUSATE SODIUM 100 MG CAP PO SCH (20:57)
[2023-07-20] MEDS ORDERED: NON-FORMULARY MEDICATION (Prenat.Vits,Cal,Min-Iron-Folic tablet) PO SCH (21:00)
[2023-07-21] MEDS: OXYTOCIN 20 UNITS/LR 1,002 ML IV SCH (00:03)
[2023-07-21] MEDS: KETOROLAC 30 MG/ML VIAL IV PRN (00:05)
[2023-07-21] MEDS ORDERED: diphenhydrAMINE 50 MG/ML VIAL IV PRN (02:32)
[2023-07-21] MEDS ORDERED: PROMETHAZINE HCL 25 MG in SODIUM CHLORIDE 0.9% 50 ML IV PRN (02:32)
[2023-07-21] MEDS ORDERED: ONDANSETRON INJ 2 MG/ML 2 ML VIAL IV PRN (02:32)
[2023-07-21] MEDS ORDERED: oxyCODONE/ACETAMINOPHEN 5mg/325mg TAB PO PRN (02:32)
[2023-07-21] MEDS ORDERED: diphenhydrAMINE Capsule 25 MG CAP PO PRN (02:32)
[2023-07-21] MEDS ORDERED: KETOROLAC 30 MG/ML VIAL IV PRN (02:32)
[2023-07-21] MEDS ORDERED: DC INTRASPINAL MORPHINE ONE (02:32)
--- NOTE | 2023-07-21 06:25 | Obstetrical Progress Note ---
Date of Service July 21, 2023 Assessment & Plan (1) Encounter for care and examination after delivery: Plan -Pt doing well clinically -Vital signs reviewed and WNL -HGB reviewed -Blood type B+ -Rubella immune -Encourage ambulation -Monitor and control pain with Motrin prn -Monitor lochia -Encourage Admission and Anticipated Discharge Date Admission Date: July 20, 2023 Supervising Physician Co-Signing Physician Notes Resident Physician Supervision Note: I was present with Dr. Naik during the history and exam. I discussed the case with the resident and agree with the findings and plan as documented in the note. Any exceptions or clarifications are listed here: [None] Documented By: Ange Galindo MD, FACOG Subjective 37 yo POD#1 s/p Ambulation: ambulating normally Voiding: Breen d/c this morning Passing Gas:: Yes Diet Tolerance:: regular diet Lochia:: Small Feeding Type:: Current Pain Level: controlled Resting comfortably this AM in NAD. Denies RUIZ, CP, SOB, N/V/D, LE pain/swelling. Review of Systems Review of Systems: All systems reviewed & are unremarkable except as noted in HPI & below Physical Exam Physical Exam: General: patient resting comfortably, NAD, non-toxic in appearance, AA&O x 4, answers questions appropriately. Skin: warm, dry, intact HEENT: NC/AT, anicteric sclera, conjunctiva without injection, moist mucus membranes. Heart: +S1/S2, regular, no m/r/g Lungs: equal air entry bilaterally, no rales/rhonchi/wheezes Abd: +BS, soft, NT/ND, uterine fundus firm at umbilicus. Wound dry, clean, no erythematous Ext: warm, no clubbing/cyanosis or edema, Deisy's neg. Neuro: nonfocal, patient AA&O x 4, speech intact, no facial droop, moving all extremities on command. Results & Data Vital Signs (Past 12 Hours) Vital Signs Temp Pulse Resp BP Pulse Ox O2 Del Method 07/21/23 02:40 18 97 07/21/23 02:31 36.7 C 80 19 103/68 98 Room Air 07/21/23 01:48 16 97 07/21/23 00:19 16 97 07/20/23 23:45 18 97 07/20/23 23:45 Room Air 07/20/23 22:57 36.5 C 87 18 96/61 L 97 Room Air 07/20/23 22:30 16 97 07/20/23 21:30 18 96 07/20/23 20:30 16 98 07/20/23 19:30 16 97 07/20/23 19:30 36.6 C 89 16 98/58 L 97 Room Air Resident Activity Tracking Resident Involvement: Resident Care Provided Care Provided: OB Delivery
[2023-07-21] MEDS: DOCUSATE SODIUM 100 MG CAP PO SCH ×2 (08:39→20:48)
[2023-07-21] MEDS: FERROUS SULFATE 325 MG TAB PO SCH (08:39)
[2023-07-21] MEDS: SIMETHICONE 80 MG CHEW PO SCH ×4 (08:39→20:48)
[2023-07-21] MEDS: PRENATAL VITAMIN 1 TAB PO SCH (08:39)
[2023-07-21 08:45] LABS: Basophils # (auto) 0.02 K/uL (0.00-0.20); Basophils % (auto) 0.2 %; Eosinophils # (auto) 0.12 K/uL (0.00-0.50); Hemoglobin 11.6 g/dl (12.0-16.0); Immature Granulocytes # (auto) 0.13 K/uL (0.01-0.20); Immature Granulocytes % (auto) 1.1 %; Lymphocytes # (auto) 1.19 K/uL (1.20-3.40); Lymphocytes % (auto) 10.4 %; Mean Corpuscular Hemoglobin 31.7 pg (25.0-34.0); Mean Corpuscular Hgb Conc 35.2 g/dL (32.0-36.0); Mean Corpuscular Volume 90.2 fL (80.0-100.0); Mean Platelet Volume 10.9 fL (9.4-12.4); Monocytes # (auto) 1.17 K/uL (0.11-0.59); Monocytes % (auto) 10.2 %; Neutrophils # (auto) 8.83 K/uL (1.40-6.50); Neutrophils % (auto) 77.1 %; Platelet Count 154 K/uL (130-400); RDW Coefficient of Variation 13.4 % (11.5-14.5); RDW Standard Deviation 44.4 fL (36.4-46.3); Red Blood Count 3.66 M/uL (4.20-5.40); White Blood Count 11.46 K/ul (4.8-10.8)
[2023-07-21] MEDS: IBUPROFEN 600 MG TAB PO PRN ×4 (08:46→20:48)
[2023-07-21] MEDS ORDERED: ACETAMINOPHEN 325 MG TAB PO PRN (17:35)
[2023-07-21] MEDS: bisacodyL 5 MG TABEC PO SCH ×2 (20:48→21:26)
[2023-07-22] MEDS: IBUPROFEN 600 MG TAB PO PRN ×2 (00:49→06:43)
[2023-07-22] MEDS: DOCUSATE SODIUM 100 MG CAP PO SCH (07:27)
[2023-07-22] MEDS: PRENATAL VITAMIN 1 TAB PO SCH (07:27)
[2023-07-22] MEDS: SIMETHICONE 80 MG CHEW PO SCH (07:27)
[2023-07-22] MEDS: FERROUS SULFATE 325 MG TAB PO SCH (07:30)
--- NOTE | 2023-07-22 07:59 | Obstetrical Progress Note ---
Date of Service July 22, 2023 Assessment & Plan (1) Supervision of elderly multigravida: Recovering very well and desires DC home. States she is not using percocet, motrin only, so no Rx sent at this time. Instructions reviewed and all questions answered. Subjective Ambulation: ambulating normally Voiding: no voiding problems Passing Gas:: Yes Diet Tolerance:: regular diet Lochia:: Small Feeding Type:: breast feeding Physical Exam Patient ambulating in room, caring for , so exam limited to observation. Appears comfortable and moving well. Constitutional WD/WN, vitals as above Respiratory normal respiratory effort and able to speak in complete sentences; no respiratory distress and no labored breathing Cardiovascular Extremities: no edema Psychiatric A+Ox3, euthymic affect Results & Data Vital Signs (Past 12 Hours) Vital Signs Temp Pulse Resp BP Pulse Ox O2 Del Method 07/22/23 07:30 97.3 F L 76 20 106/62 97 Room Air 07/21/23 23:20 Room Air 07/21/23 22:57 97.9 F 72 18 103/68 97 Room Air
[2023-07-22] MEDS ORDERED: bisacodyL 10 MG SUPP PR PRN (08:31)
--- NOTE | 2023-07-24 10:53 | Discharge Summary ---
Date of Service July 24, 2023 Admission HPI Per Admitting Provider 39 weeks repeat c/s 2 prior Current Estimate 07/27/23 LMP (Certain) 38w 6d Other Estimates 07/30/23 Ultrasound #1 38w 3d LMP: 10/20/22 : 4 Full term: 2 Premature: 0 Total Number of Induced Abortions: 0 Total Number of Spontaneous Abortions: 1 Ectopics: 0 Multiple births: 0 Number of Living Children: 2 and Delivery Plans Prior Section affecting previous c/s x 2 C/S SCHEDULED FOR 07/20/[address] CEE AND DR[address] DUMONT ASSIST Elevated TSH at [facility] - No treatment per [facility] [place] Endocrine 3.1cm fibroid, L 1.7cm solid mass suspected fibroma on dating US AMA *Weekly NST's @ 36 wks. Iodine Allergy Not covid vaccine GBS positive in Urine *Treat in Labor Discharge Data Consultations 07/20/23 05:35 Consult Anesthesiology Stat Procedures Performed Operation Date: 07/20/23 07:30 Actual Procedures p Section in LD; Repeat Lower Uterine Transverse Section for the of a live boy infant at 0808(Bilateral) - Ange Cee MD, FACOG Hospital Course (1) Encounter for pre-operative examination: Plan admit jul 20- for c/s Coding Level of Care Code None Diagnoses Encounter for pre-operative examination Z01.818
== END 2023-07-22 10:20 | disposition home or self-care (01) | DRG 788 ==
LOC: 4S1 05:35 → EDSTATUS 08:50 → 4E2 12:00